=== PATIENT | female | born 1945 | race American Indian/Alaskan Native ===

== ENCOUNTER 2019-01-06 05:25 | Day surgery (SDC) | payer OTHER, MEDICARE ==
[~2019-01-06] VITALS: Ht 165.1 cm; Wt 59.9 kg
[2019-01-06] MEDS ORDERED: CEFAZOLIN SOD 1 GM in D5W 50 ML IV ONE (07:00)
[2019-01-06] MEDS ORDERED: IOHEXOL 50 ML IV ONE (07:37)
[2019-01-06] MEDS ORDERED: LR 1,000 ML IV SCH (08:28)
[2019-01-06] MEDS ORDERED: MORPHINE 4 MG/ML INJ. SYRINGE IVP PRN ×3 (08:30)
[2019-01-06] MEDS ORDERED: D5/0.45 NS 1,000 ML IV SCH (08:47)
[2019-01-06] MEDS ORDERED: LR 1,000 ML IV.SOLN IV ONE (08:50)
[2019-01-06] MEDS ORDERED: GLYCOPYRROLATE 0.2 MG/ML VIAL ONE (08:50)
[2019-01-06] MEDS ORDERED: MIDAZOLAM HCL 5 MG/ML VIAL (VERSED) IV ONE (08:50)
[2019-01-06] MEDS ORDERED: fentaNYL CITRATE/PF 100 MCG/2 ML AMP ONE (08:50)
[2019-01-06] MEDS ORDERED: ROCURONIUM BROMIDE 10 MG/ML (ZEMURON) ONE (08:50)
[2019-01-06] MEDS ORDERED: ONDANSETRON HCL 4 MG/2 ML VIAL ONE (08:50)
[2019-01-06] MEDS ORDERED: SEVOFLURANE 15 MIN GAS INH ONE (08:50)
[2019-01-06] MEDS ORDERED: ePHEDrine sulfate 50 MG/ML VIAL ONE (08:50)
[2019-01-06] MEDS ORDERED: BUPIVACAINE /PF 0.25% 30 ML VIAL INJ ONE (08:50)
[2019-01-06] MEDS ORDERED: NEOSTIGMINE METHYLSULFATE 1 MG/ML, 10 ML VIAL ONE (08:50)
[2019-01-06] MEDS ORDERED: NS IRRIG SOLN 1000 ML IR ONE (08:50)
[2019-01-06] MEDS ORDERED: HYDROcodone/ACETAMIN 5-325 MG TAB (NORCO/ VICODIN) PO PRN ×2 (09:00)
[2019-01-06] MEDS ORDERED: HYDROmorphone 1 MG INJ. 1 MG/ML AMPUL IVP PRN (09:00)
[2019-01-06 09:50] VITALS: BP_SYST 113
== END 2019-01-06 12:30 | disposition home or self-care (01) ==
LOC: SMU 05:25 → SDS 05:25
PROVIDERS: ATTEND Colon & Rectal Surgery
DX: K80.10 Calculus of gallbladder with chronic cholecystitis without obstruction (principal); E78.5 Hyperlipidemia, unspecified; I10 Essential (primary) hypertension; Z98.890 Other specified postprocedural states; Z80.1 Family history of malignant neoplasm of trachea, bronchus and lung; Z87.891 Personal history of nicotine dependence; Z79.899 Other long term (current) drug therapy; Z79.82 Long term (current) use of aspirin; J44.9 Chronic obstructive pulmonary disease, unspecified
CPT/HCPCS: 47563; 74300; C1727; C1758; J0690; J2250; J2405; J2710; J3010; J3490 ×2; J7060; J7120; Q9967